=== PATIENT | female | born 1995 | race Caucasian/White ===

== ENCOUNTER 2020-05-11 09:14 | Emergency (ER) | payer OTHER ==
[~2020-05-11] VITALS: Ht 160 cm; Wt 60.3 kg
[2020-05-11] MEDS ORDERED: LITHOBID300 M1 (09:37)
[2020-05-11] MEDS ORDERED: OLANZAPINE7.5 MG (09:38)
== END 2020-05-11 11:20 | disposition home or self-care (01) ==
LOC: ER 09:14
DX: S82.432A Displaced oblique fracture of shaft of left fibula, initial encounter for closed fracture (principal); V00.131A Fall from skateboard, initial encounter; Y93.51 Activity, roller skating (inline) and skateboarding; Y92.89 Other specified places as the place of occurrence of the external cause; Y99.8 Other external cause status